=== PATIENT | female | born 1940 | race Caucasian/White ===

== ENCOUNTER → 2016-07-21 08:31 | Outpatient (CLI) | payer MEDICARE, OTHER ==
[~2016-07-21 08:31] MED LIST: AMOXICILLIN875 MG PO; ANTIVERT12.5 MG PO; ASPIRIN81 MG PO; ATIVAN0.5 MG PT; ATIVAN2 MG/ML IV; AUGMENTIN 875-11 TAB PO; BETAPACE 80 MG80 MG PO; BOUDREAUXS113 GM TP; CELEXA40 MG PO; COMBIGAN OPHT DR5 ML EACH EYE; COMBIGAN OPHT DR5 ML OP; COUMADIN2.5 MG PO; COUMADIN3 MG PO; COUMADIN5 MG PO; DEXTROSE 50%/WA50 ML IV; DIABETA5 MG PO; DULCOLAX10 MG/SUPP RC; GLIPIZIDE10 MG PO; GLIPIZIDE10 MG PT; GLUCAGON1 MG/KIT IM; GLUCAGON1 MG/KIT SQ; GLUCOPHAGE500 MG PO; HUMALOG 30100 UNITS/ SC; HUMALOG100 U/M1 SQ; HYDROCHLOROTHIA25 MG PO; IMODIUM A-D2 MG PO; INSTA-GLUCOSE31 GM PO; JANUVIA100 MG PO; KLOR-CON M2020 MEQ PO; LANOXIN125 MCG PO; LANOXIN250 MCG; LANOXIN250 MCG PO; LANTUS SOL100 UNIT/1 SC; LANTUS SOL100 UNIT/1 SQ; LASIX40 MG PO; LOPRESSOR25 MG PO; LOPRESSOR50 MG PO; LOTREL 5/10 MG1 CAP PO; LOTRISONE CREAM45 GM TP; MACRODANTIN100 MG PO; MICRO-K10 MEQ PO; MIRALAX17 GM PO; PLAVIX75 MG PO; POTASSIUM20 MEQ/15 PO; PROTONIX I40 MG/VIAL IV; SALINE FLUSH10 ML IV; SALINE NASAL SP45 ML NS; SENOKOT-S TABLE1 TAB PO; VITAMIN D31000 UNIT PO; XARELTO10 MG PO; XOPENEX 1.1.25 MG/3 UPD; [UNRECOGNIZED DRUG - OTHER]
== END | disposition home or self-care (01) ==
LOC: D.CT 08:31
DX: I73.9 Peripheral vascular disease, unspecified (principal)

== ENCOUNTER 2016-07-29 12:46 | Inpatient (IN) | payer MEDICARE, OTHER ==
[~2016-07-29] VITALS: Ht 160 cm; Wt 70.0 kg
[2016-07-29] VITALS (12 sets, daily range): BP systolic 120–168; BP diastolic 51–75; Ht 160 cm; Wt 70.0 kg
--- NOTE | ~2016-07-29 | HEMODYNAMI ---
PATIENT:CATHY MAR MEDICAL RECORD: [id number] : 42 LOCATION:[facility] D.CV ADMISSION DATE: 07/29/16 Generatedon:08/01/201610:50 Patient name: CATHY MAR Patient #: [id number] SSN: : 1940 Date of study: 08/01/2016 Page: Of Hemodynamic Procedure Report Patient Data Patient Demographics Procedure consent was obtained First Name: CATHY Gender: Female Last Name: ISABELA : 1940 Patient #: [id number] Age: 75 year(s) Race: Unknown Additional ID: [id number] Contact details [address]: [address] [place] [address] State: [place] City: [place] Zip code: [address] Admission Admission Data Admission Date: 07/29/2016 Admission Time: 12:46 Room #: [facility]07 Procedure Procedure Types Cath Procedure Peripheral Cath Diagnostic Procedure Miscellaneous Procedure Description Procedure Date Procedure Date: 08/01/2016 Procedure Start Time: 9:01 Procedure Staff Name Function Rosendo Brower MD Performing Physician Eloise Lopez RN Nurse Chery Anguiano RT Scrub Thompson Joyner RT Monitor Procedure Data Cath Procedure Fluoroscopy Diagnostic fluoroscopy Total fluoroscopy Time: time: 22.1 min 22.1 min Diagnostic fluoroscopy Total fluoroscopy dose: 205 dose: 205 mGy mGy Entry Location Entry Primary Successful Side Size Upsize 1 Upsize Entry Closure Raygoza ccessful Closure Location (Fr) (Fr) 2 (Fr) Remarks Device Remarks Femoral Right 5 Fr artery Femoral Right 5 Fr 6 Fr Mynx artery Mid-Length Automatic Grinder Operator 6Fr/7Fr Diagnostic catheters Device Type Used For End Catheter Placement Diagnostic 5Fr IMT Catheter Procedure Medications Medication Administration Route Dosage Oxygen NC 3 l/min Lidocaine 1% added to field 20 Heparin Flush Bag added to field 3 bags (1000units/500ml NS) Versed I.V. 1 mg Fentanyl I.V. 50 mcg Versed I.V. 0.5 mg Fentanyl I.V. 25 mcg Heparin Bolus I.V. 4000 units Nitroglycerin IC/IA I.A. 300 mcg Versed I.V. 0.5 mg Fentanyl I.V. 25 mcg Nitroglycerin IC/IA I.A. 200 mcg Versed I.V. 0.5 mg Fentanyl I.V. 25 mcg Heparin Bolus I.V. 2000 units Versed I.V. 0.5 mg Fentanyl I.V. 25 mcg Hemodynamics Rest Heart Rate: 70 (bpm) Snapshots Pre Cath Intra NCS Post Cath Vital Signs Time Heart Resp SPO2 NIBP (mmHg) Rhythm Pain Sedation Rate (ipm) (%) Status Level (bpm) 8:40:23 69 18 97 174/80(122) Paced 0 (11) 10(A) , No pain 8:44:52 63 9 95 172/86(148) Paced 0 (11) 10(A) , No pain 8:49:16 69 17 98 172/81(134) Paced 0 (11) 10(A) , No pain 8:53:40 72 13 96 164/85(157) Paced 0 (11) 10(A) , No pain 8:58:04 69 14 98 143/70(111) Paced 0 (11) 10(A) , No pain 9:02:24 69 13 96 138/62(111) Paced 0 (11) 10(A) , No pain 9:06:44 69 17 96 135/63(101) Paced 0 (11) 9(A) , No pain 9:11:05 69 11 95 140/66(107) Paced 0 (11) 9(A) , No pain 9:15:23 69 17 95 126/59(99) Paced 0 (11) 9(A) , No pain 9:19:39 69 15 96 144/67(102) Paced 0 (11) 9(A) , No pain 9:23:59 69 15 96 145/65(108) Paced 0 (11) 9(A) , No pain 9:28:21 69 14 96 151/74(123) Paced 0 (11) 9(A) , No pain 9:32:45 69 14 97 158/73(121) Paced 0 (11) 9(A) , No pain 9:37:01 69 14 96 139/64(109) Paced 0 (11) 9(A) , No pain 9:41:19 69 14 94 128/56(93) Paced 0 (11) 9(A) , No pain 9:45:38 69 14 94 126/60(102) Paced 0 (11) 9(A) , No pain 9:49:56 69 16 94 126/61(99) Paced 0 (11) 9(A) , No pain 9:54:16 69 15 94 127/59(96) Paced 0 (11) 9(A) , No pain 9:58:34 69 15 94 116/53(82) Paced 0 (11) 9(A) , No pain 10:02:44 69 14 93 104/64(99) Paced 0 (11) 9(A) , No pain 10:07:43 69 14 94 129/62(103) Paced 0 (11) 9(A) , No pain 10:11:57 69 12 94 122/60(93) Paced 0 (11) 9(A) , No pain 10:16:13 69 13 95 120/58(88) Paced 0 (11) 9(A) , No pain 10:21:20 69 10 95 149/70(118) Paced 0 (11) 9(A) , No pain 10:25:36 69 13 94 135/66(109) Paced 0 (11) 9(A) , No pain 10:29:58 69 14 94 120/59(96) Paced 0 (11) 9(A) , No pain 10:34:10 69 12 96 132/72(102) Paced 0 (11) 9(A) , No pain 10:38:28 69 12 95 132/67(112) Paced 0 (11) 9(A) , No pain 10:42:46 69 10 96 127/65(103) Paced 0 (11) 9(A) , No pain 10:46:56 69 17 97 146/86(122) Paced 0 (11) 9(A) , No pain Medications Time Medication Route Dose Verified Delivered Reason Notes Effectiveness by by 8:39:06 Oxygen NC 3 Eloise Eloise Per protocol l/min King HODA Lopez RN 8:39:19 Lidocaine 1% added 20ml Eloise Eloise for local to vial King HODA Lopez RN anesthetic field 8:39:38 Heparin Flush added 3 bags Eloise Eloise used for Bag to King HODA Lopez RN procedure (1000units/500ml field NS) 8:54:42 Versed I.V. 1 mg Eloise Eloise for sedation King HODA Lopez RN 8:54:49 Fentanyl I.V. 50 mcg Eloise Eloise for sedation King HODA Lopez RN 9:06:26 Versed I.V. 0.5 mg Eloise Eloise for sedation King HODA Lopez RN 9:06:33 Fentanyl I.V. 25 mcg Eloise Eloise for sedation King HODA Lopez RN 9:11:52 Heparin Bolus I.V. 4000 Rosendo Eloise for units Inocente Lopez RN anticoagulation 9:31:13 Nitroglycerin I.A. 300mcg Eloise Rosendo for IC/IA King HODA Brower vasodilation 9:36:22 Versed I.V. 0.5 mg Eloise Rosendo for sedation King HODA Brower MD 9:36:27 Fentanyl I.V. 25 mcg Eloise Rosendo for sedation King HODA Brower MD 9:53:42 Nitroglycerin I.A. 200mcg Eloise Rosendo for IC/IA King HODA Brower vasodilation 9:55:43 Versed I.V. 0.5 mg Eloise Rosendo for sedation King HODA Brower MD 9:55:49 Fentanyl I.V. 25 mcg Eloise Rosendo for sedation King HODA Brower MD 9:57:24 Heparin Bolus I.V. 2000 Eloise Rosendo for units King HODA Brower anticoagulation 10:20:02 Versed I.V. 0.5 mg Eloise Rosendo for sedation King HODA Brower MD 10:20:07 Fentanyl I.V. 25 mcg Eloise Rosendo for sedation King HODA Brower MD Procedure Log Time Note 8:29:58 Thompson Joyner RT (R) (CV) sent for patient. Start room use. 8:30:09 Time tracking: Regular hours 8:30:15 Plan of Care:Hemodynamics will remain stable., Cardiac rhythm will remain stable., Comfort level will be maintained., Respiratory function will remain adequate., Patient/ family verbilizes understanding of procedure., Procedure tolerated without complication., Recovers from procedure without complications.. 8:30:20 Patient received from CVICU to IR Alert and oriented. Tansferred to table in Supine position. 8:30:22 Correct patient and procedure confirmed by team. 8:30:23 Correct patient and procedure confirmed by team. 8:30:27 Signed procedure consent form obtained from patient. 8:30:28 ECG and BP/O2 sat monitors applied to patient. 8:30:29 Full Disclosure recording started 8:30:29 - 8:30:33 H&P Date Dictated: 08/01/2016 Within 30 days and on chart.. 8:30:34 Pre-procedure instructions explained to patient. 8:30:34 Pre-op teaching completed and patient verbalized understanding. 8:30:36 Family unavailable. 8:30:38 Patient NPO since Midnight. 8:30:44 Is the patient allergic to Iodine/contrast media? No. 8:30:45 Is patient on blood thinner?Yes 8:30:48 ACC The patient was administered the following blood thiners within the last 24 hours: ACCHeparin 8:30:50 Patient diabetic? Yes. 8:30:52 If diabetic: On Metformin? Yes 8:30:57 If on Metformin: Last Dose? 07/29/2016 8:30:59 ----Pre-sedation anethsthesia assessment.---- 8:31:02 Previous problem with sedation/anesthesia? No ? 8:31:02 Snore? Yes 8:31:04 Sleep apnea? No 8:31:05 Deviated septum? No 8:31:06 Opens mouth fully? Yes 8:31:07 Sticks out tongue? Yes 8:31:09 Airway obstruction? No ? 8:31:11 Dentures? No ? 8:31:14 Use device set IR Diagnostic 8:31:16 Sterile Angiographic Pack opened to sterile field. 8:31:17 Bag Decanter opened to sterile field. 8:37:53 Vital chart was started 8:37:54 Baseline sample Acquired. 8:37:58 Rhythm: sinus rhythm 8:38:08 Pre procedure: left dorsailis pedis pulse Doppler 8:38:12 Pre procedure: right dorsailis pedis pulse 0-Absent 8:38:15 Pre procedure: right posterior tibial pulse 0-Absent 8:38:19 Pre procedure: left posterior tibial pulse Doppler 8:38:25 Patient pain scale 0/10 no pain. 8:38:27 Alarms reviewed by R. N. 8:38:27 Sharps counted by scrub and verified by R.N. 8:38:32 Bilateral groins area was prepped with chlora-prep and draped in steril e fashion 8:39:06 Oxygen 3 l/min NC was administered by Eloise Lopez RN; Per protocol; 8:39:19 Lidocaine 1% 20ml vial added to field was administered by Eloise Lopez RN; for local anesthetic; 8:39:38 Heparin Flush Bag (1000units/500ml NS) 3 bags added to field was administered by Eloise Lopez RN; used for procedure; 8:47:52 IV patent on arrival in left forearm with 0.9% NaCl at [facility]. 8:53:18 Physician arrived 8:53:19 --------ALL STOP TIME OUT------ 8:53:20 Final Timeout: patient, procedure, and site verified with staff and physician. All members of the team are in agreement. 8:53:22 Bilateral groins site verified by team. 8:53:26 Physical assessment completed. ASA score P 3 - A patient with severe systemic disease as per Rosendo Brower MD. 8:53:30 Sedation plan: IV Moderate Sedation Versed, Fentanyl 8:54:42 Versed 1 mg I.V. was administered by Eloise Lopez RN; for sedation; 8:54:49 Fentanyl 50 mcg I.V. was administered by Eloise Lopez RN; for sedation; 9:01:10 Procedure started. 9:01:22 Local anesthetic to left femerol artery with Lidocaine 1% by Rosendo Brower MD.INITIAL ACCESS ONLY 9:01:36 A 5 Fr sheath was inserted into the Right Femoral artery 9:01:54 A 5 Fr sheath was inserted into the Right Femoral artery 9:02:11 Damien NICHOLSON 145cm guide wire opened to sterile field. 9:02:12 St Ben 5FR Sheath opened to sterile field. 9:02:12 Micropuncture VSI 4FR kit opened to sterile field. 9:02:13 Damien RHODES 260 guide wire opened to sterile field. 9:02:21 A Diagnostic 5Fr IMT Catheter was advanced over the wire and used for . 9:06:26 Versed 0.5 mg I.V. was administered by Eloise Lopez RN; for sedation; 9:06:33 Fentanyl 25 mcg I.V. was administered by Eloise Lopez RN; for sedation; 9:09:43 Cook [facility] 260 .035 glide wire opened to sterile field. 9:10:15 Terumo 6Fr Roxana Destination Sheath opened to sterile field. 9:10:31 Sheath upsized to a 6 Fr Mid-Length. 9:11:52 Heparin Bolus 4000 units I.V. was administered by Eloise Lopez RN; for anticoagulation; 9:14:23 CXI SUPPORT .035 135 CM STR catheter opened to sterile field. 9:22:40 [place] Sci Choice PT Extra Support J 300cm .014 gu opened to sterile field. 9:23:01 Turbohawk 1 Large Atherectomy catheter opened to sterile field. 9:24:38 Terumo ANGLE 260cm glide wire opened to sterile field. 9:24:39 BasixTOUCH Inflation Syringe opened to sterile field. 9:31:13 Nitroglycerin IC/IA 300mcg I.A. was administered by Rosendo Brower MD; for vasodilation; 9:36:22 Versed 0.5 mg I.V. was administered by Rosendo Brower MD; for sedation; 9:36:27 Fentanyl 25 mcg I.V. was administered by Rosendo Brower MD; for sedation; 9:53:42 Nitroglycerin IC/IA 200mcg I.A. was administered by Rosendo Brower MD; for vasodilation; 9:55:43 Versed 0.5 mg I.V. was administered by Rosendo Brower MD; for sedation; 9:55:49 Fentanyl 25 mcg I.V. was administered by Rosendo Brower MD; for sedation; 9:57:24 Heparin Bolus 2000 units I.V. was administered by Rosendo Brower MD; fo r anticoagulation; 10:10:37 Inflation number: 1 A IN.PACT Admiral 5 x 150 balloon was prepped and advanced across the Distal Superficial Femoral, Right, then inflated to 0 ZELDA for 0:00 (min:sec). 10:15:11 Inflation number: 1 A IN.PACT Admiral 6 x 150 balloon was prepped and advanced across the Mid Superficial Femoral, Right, then inflated to 0 ZELDA for 0:00 (min:sec). 10:20:02 Versed 0.5 mg I.V. was administered by Rosendo Brower MD; for sedation; 10:20:07 Fentanyl 25 mcg I.V. was administered by Rosendo Brower MD; for sedation; 10:24:04 Inflation number: 1 A IN.PACT Admiral 6 x 150 balloon was prepped and advanced across the Proximal Superficial Femoral, Right, then inflated to 0 ZELDA for 0:00 (min:sec). 10:25:29 St Ben 6Fr sheath opened to sterile field. 10:37:47 Sheath removed intact; hemostasis achieved with Mynx Automatic Grinder Operator 6Fr/7Fr to th e Right Femoral artery. 10:39:33 MYNX ROOM SERVICE SUPERVISOR 6FR/7FR opened to sterile field. 10:39:35 Procedure ended.(Physican Out) 10:40:42 Fluoroscopy time 22.10 minutes. 10:40:56 Fluoroscopy dose: 205 mGy 10:40:56 Flurop Dose total: 205 10:41:06 Contrast amount:Isovue 300 0.01ml. 10:41:08 Sharps counted by scrub and verified by R.N. 10:41:11 Insertion/operative site no bleeding no hematoma. 10:41:14 Post-op/insertion site Left Femoral artery dressed using a 4 x 4 and Tegaderm. 10:41:19 Post left femerol artery:stable 10:41:20 Post Procedure Pulses reassessed and unchanged 10:47:09 Post-procedure physical assessment completed. ASA score P 3 - A patient with severe systemic disease as per Rosendo Brower MD. 10:47:14 Post procedure rhythm: unchanged. 10:47:15 Post procedure instruction explained to patient.Patient verbalizes understanding. 10:47:23 Post procedure: right dorsailis pedis pulse Doppler. 10:47:25 Post procedure: left dorsailis pedis pulse Doppler. 10:47:29 Post procedure: right posterior tibial pulse Doppler. 10:47:33 Post procedure: left posterior tibial pulse 0-Absent. 10:49:32 Procedure and supply charges have been captured, reviewed, submitted an d are correct. 10:49:35 Report given to CVICU. 10:49:38 Patient transfered to CVICU with Bed. 10:50:20 Vital chart was stopped Intervention Summary Intervention Notes Time ActionType Lesion and Equipment Action# Pressure Duration Attributes Used 10:10:37 Inflate Distal IN.PACT 1 0 00:00 balloon Superficial Admiral 5 Femoral, x 150 Right balloon 10:15:11 Inflate Mid IN.PACT 1 0 00:00 balloon Superficial Admiral 6 Femoral, x 150 Right balloon 10:24:04 Inflate Proximal IN.PACT 1 0 00:00 balloon Superficial Admiral 6 Femoral, x 150 Right balloon Device Usage Item Name Manufacture Quantity Catalog Number [facility] nimal Lot# / Charge Number Stock Stock Serial# Code Sterile Cardinal 1 [id number] 5 Angiographic Health Pack Bag Decanter Microtek 1 [id number] [id number] 5 [employer] [facility] 1 [id number] 506971 846597 [id number] guide wire [address] Ben 5FR St Ben 1 [id number] 652667 368329 5 [id number] Sheath Micropuncture VSI VASCULAR 1 [id number] 281464 654883 5 VSI 4FR kit SOLUTIONS [facility] 1 [id number] 884198 657567 5 [id number] 260 guide wire Diagnostic [place] 1 [id number] 307972 878010 41788 5 [id number] 5Fr IMT Scientific Catheter [facility] 1 [id number] 478524 839453 5 [id number] ROADRUNNER 260 .035 glide wire Terumo 6Fr Terumo 1 RSR01 345187 92399 061101 5 Roxana Destination Sheath CXI SUPPORT [facility] 1 [id number] 326244 212692 5 .035 135 CM STR catheter [place] Sci [place] 1 [id number] 643830 [id number] 659872 5 Choice PT Scientific Extra Support J 300cm .014 gu Turbohawk 1 Ev3 1 H1-M [id number] 836369 070260 5 Large Atherectomy catheter Terumo ANGLE Terumo 1 [id number] 283590 802989 062261 5 260cm glide wire BasixTOUCH Merit 1 DO7870 226528 788712 933186 5 Inflation Medical Syringe IN.PACT Medtronic 1 [id number] 723624 2039495 172190 5 [id number] Admiral 5 x 150 balloon IN.PACT Medtronic 2 [id number] 178066 4351583 279958 5 [id number] Admiral 6 x [id number] [address] Ben [address] St Ben 1 [id number] 373797 025739 5 [id number] sheath MYNX ROOM SERVICE SUPERVISOR Access 1 [id number] [id number] 5 [id number] 6FR/7FR Closure Signature Audit [place] Stage Time Signature Unsigned Intra-Procedure 08/01/2016 Thompson 10:50:17 AM Ar RT (R) (CV) Signatures Monitor : Thompson Signature : Ar RT Date : Time : [address] [place] [address]
[~2016-07-29 12:46] MED LIST changes: -AMOXICILLIN875 MG PO; -AUGMENTIN 875-11 TAB PO
--- NOTE | 2016-07-29 13:45 | NUR ---
SPOKE WITH AMINA AUTO SERVICE REPRESENTATIVE ACCESS NURSE. NOTIFIED OF CONSULT FOR MIDLINE ACCESS.
[2016-07-29] MEDS ORDERED: AMOXICILLIN875 MG PO (13:52)
[2016-07-29 13:54] LABS: HEMATOCRIT 42.7 % (36.0-48.0); HEMOGLOBIN 13.4 g/dL (12-16); MCH 29.7 pg (26.0-34.0); MCHC 31.4 g/dL (31.0-37.0); MCV 94.7 fL (80.0-100.0); MEAN PLATELET VOLUME 11.1 fL (7.4-10.4); RBC 4.51 10x6/uL (4.00-5.40); RDW 14.1 % (11.5-14.5)
--- NOTE | 2016-07-29 14:24 | NUR ---
1320 PATIENT ARRIVED VIA WHEELCHAIR VIA DIRECT ADMIT FROM DR. SHAIKH'S OFFICE. ORDERS ENTERED WRITTEN. VITALS ALL WNL. ADMISSION ASSESSMENT DOCUMENTED PER FLOWSHEET. OPEN WOUND TO BOTTOM OF R GREAT TOE. PULSES PALP TO LEFT FOOT, PULSES DOPPLERED TO R FOOT. CONSULT PLACED FOR IR, HODA ROGER FROM IR ON FLOOR. HODA HUYNH FOR MIDLINE ACCESS CONSULTED. HODA NUNEZ WITH WOUND CARE CONSULTED. 1345 PATIENT OFF FLOOR TO XRAY FOR PA & LATERAL VIA WHEELCHAIR. 1400 BACK TO BED, SHALA WITH RESP AT SIDE FOR ABG.
[2016-07-29 14:25] LABS: APTT 26.1 SECONDS (22.8-39.4); INR 1.05 (0.85-1.17); PROTIME 13.6 SECONDS (11.6-15.0)
[2016-07-29 14:30] LABS: ALBUMIN 3.5 g/dL (3.4-5.0); ANION GAP 14.1 mmol/L (8-16); BILIRUBIN - TOTAL 0.6 mg/dL (0.2-1.3); CALCIUM 9.7 mg/dL (8.5-10.1); CARBON DIOXIDE 29.5 mmol/L (21.0-32.0); CREATININE - SERUM 1.3 mg/dL (0.6-1.3); POTASSIUM - SERUM 4.6 mmol/L (3.5-5.1); PROTEIN - SERUM 7.2 g/dL (6.4-8.2)
--- NOTE | 2016-07-29 15:09 | NUR ---
AMINA BYRD RN AT BEDSIDE FOR MIDLINE PLACEMENT. HODA HANKSCIVIL CELEBRANT AT BEDSIDE FOR CONSULT.
--- NOTE | 2016-07-29 15:46 | NUR ---
WOUND CARE CONSULT: NOTED 2 OPEN WOUNDS ON RIGHT GREAT TOE (PLANTAR ASPECT). BOTH WOUNDS ARE DRY WITH PEELING EDGES. THE TOE IS COOL TO THE TOUCH. NO DRAINAGE IS NOTED, NO ODOR, EDEMA OR REDNESS. TOE BLANCHES, BUT SLOWLY. RECOMMEND APPLYING HYDROGEL TO BOTH WOUNDS DAILY. WOUND CARE WILL CONTINUE MONITORING.
--- NOTE | 2016-07-29 16:14 | NUR ---
1545 LEFT UPPER ARM PICC LINE PLACED. OK TO USE PER AMINA BYRD RN. WOUND CARE NURSE AT BEDSIDE TO DRESS R GREAT TOE. 1350 HEPARIN GTT AND NS STARTED PER ORDER FROM DR. SHAIKH. 1600 ALL PO MEDS GIVEN ORDERED.
--- NOTE | 2016-07-29 16:45 | NUR ---
SITTING UP IN BED EATING DINNER, ARRIVED WITH LIVING WILL. MYSELF AND DURGA GLEZ BOTH WITNESSED PATIENT LIVING WILL. COPY PLACED IN CHART AND FILED DOWNSTAIRS.
--- NOTE | 2016-07-29 18:35 | NUR ---
AMBULATED TO BATHROOM TO VOID. SITTING IN BEDSIDE CHAIR.
--- NOTE | 2016-07-29 19:30 | NUR ---
Assessment complete. See flowsheet. Pt awake and sitting in bedside chair with VSS. Pt alert, oriented x4 and following all commands and conversation with no neuro deficits noted. Pupils size 3 bilaterally ERRLA. Pt moving all extremities with 5/5 strength and no edema noted. Right great toe dressing noted and secure with distal half of right foot red and blanching. Pt denies pain to site. Lung sounds CTA. HR paced 70BPM with S1S2 auscultated. Left upper chest pacemaker noted. Radial pulses +2 bilaterally. Bilateral dorsalis pedis pulses doppler located to confirm weak palpation of pulses. Left upper arm PICC line site CDI with heparin gtt infusing @ 500un/hr (5cc/hr) with NS @ 10cc/hr KVO rate. BS present to all quadrants. Abdomen soft and flat, nontender to palpation. Pt calm and cooperative with no complaints at this time. Rapport established. Temp 98.2F orally. Pt provided with ice water per request. Call light, telephone and bedside table placed within pt reach per request. CPOC.
--- NOTE | 2016-07-29 20:33 | NUR ---
HEPARIN 3000un IV bolus administered. Heparin gtt rate increased by 200un/hr per protocol to 700un/hr from PTT 32.7
--- NOTE | 2016-07-29 21:30 | NUR ---
PM meds administered. See MAR> FSBS 205mg/dL and covered per s/s. See MAR. Snack provided per pt request. CPOC.
--- NOTE | 2016-07-29 22:54 | NUR ---
Pt helped back to bed from chair to position for comfort. Pt tolerated well. VSS. Call light and bedside table placed within pt reach. CPOC.
--- NOTE | 2016-07-29 23:30 | NUR ---
Reassessment complete. See flowsheet. Pt watching television in bed with VSS and no neuro changes to note. O2 RA. Respirations even and unlabored. HR remains paced with S1S2 auscultated. No peripheral pulse changes to note. PICC line site CDI with no IVF changes to note. BS +. Pt continues to self-position for comfort. NO further request at this time. No other changes to note. Call light and bedside table remain within reach. CPOC.
[2016-07-30] VITALS (22 sets, daily range): BP systolic 116–165; BP diastolic 47–69
--- NOTE | 2016-07-30 01:30 | NUR ---
Pt resting quietly with VSS. NO s/s pain or distress and allowed to continue resting undisturbed. Call light and bedside table remain within pt reach. CPOC.
--- NOTE | 2016-07-30 02:00 | NUR ---
Timed PTT drawn
--- NOTE | 2016-07-30 03:30 | NUR ---
Reassessment complete. See flowsheet. Pt confused upon awakening to time but reorients easily. Pt remains calm. Respirations even and unlabored. HR remains paced with S1S2 auscultated. No peripheral pulse changes to note. PICC line site CDI with no IVF changes to note. BS +. Pt continues to self-position for comfort and up to bedside toilet with steady gait. Back to bed and positioning for comfort. Call light and bedside table remain within pt reach. CPOC.
--- NOTE | 2016-07-30 05:15 | NUR ---
Pt confused to time and situation and reoriented. Lights turned on per pt request. Pt reminded of breakfast serving time per request. Pt reorients well and remains calm and cooperative. Call light and bedside table remain within pt reach. CPOC.
--- NOTE | 2016-07-30 06:00 | NUR ---
Pt resting with VSS. Call light and bedside table remain within pt reach. CPOC.
--- NOTE | 2016-07-30 14:10 | HP ---
PATIENT: CATHY MAR MEDICAL RECORD: [id number] ACCOUNT: [id number] LOCATION:[facility].CV07 : 41 ADMISSION DATE: 07/29/16 HISTORY AND PHYSICAL EXAMINATION CATHY Jaimes (75yo, F) ID# [id number]. Date/Time07/29/2016 10:71EGQWA01/29/1941Service Dept.NP_[facility] ClinicProviderEDMORENITA SHAIKH MDInsuranceMed Primary: [place] ([place]) Insurance # : [id number] Referring Provider Name : GIOVANNA KRUEGER Employer Name : RETIRED Med Secondary: [employer] (MEDICARE SUPPLEMENT) Insurance # : [id number] Referring Provider Name : GIOVANNA KRUEGER Employer Name : RETIRED Prescription: ARGSDIR - Member is eligible. Chief Complaint PVD - peripheral vascular disease Followup: Carotid artery stenosis s/p RCEA 11/03/15 s/p PPM placement 10/24/12 need LCEA new referral for PVD Patient's Care Team Referring Provider (): GIOVANNA KRUEGER: [address] [place] [address], , Patient's Pharmacies [facility] (ERX): [address] [facility] [id number], , Vitals BP:150/90 sitting R arm 07/29/2016 11:06 amHR:66irreg 07/29/2016 11:06 amHt:5 ft 4 in 07/29/2016 11:03 amWt:151 lbs 07/29/2016 11:04 amBMI:25.9 07/29/2016 11:04 amAllergies Reviewed Allergies AVANDAMET: Myalgias (muscle pain)AVANDIA: Other - intolerant toMETFORMIN: Myalgias (muscle pain)[id number] REDUCTASE INHIBITORS: Myalgias (muscle pain)Medications Reviewed Medications Accu-Chek Compact Plus Test Strips TEST BID06/08/16 filledsurescriptsamoxicillin 875 mg-potassium clavulanate 125 mg ojukhz32/08/17 filledLivekickcitalopram 40 mg anzzpm92/07/17 filledLivekickCombigan 0.2 %-0.5 % eye drops03/06/15 filledCaremarkdigoxin 125 mcg /28/17 filledLivekickfurosemide 40 mg pyfcju14/27/17 filledLivekickKlor-Con M20 mEq tablet,extended hztzemg00/14/17 filledLivekickLantus Solostar 100 unit/mL (3 mL) subcutaneous insulin pen07/03/16 filledLivekickmetFORMIN 500 mg hlhdui81/23/17 filledLivekickmetoprolol tartrate 25 mg /10/17 filledLivekickPen Needle 31 gauge x 09/27"03/16/13 filledCaremarksotalol 120 mg tablet TK ONE T PO BID.06/08/16 filledLivekickProblems Reviewed Problems 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 - Onset: 07/29/2016 Atrial fibrillation Atherosclerosis of arteries of the extremities - Onset: 07/28/2016 Coronary arteriosclerosis HISTORY AND PHYSICAL [id number] CATHY MAR Carotid artery stenosis, Bilateral Diabetes mellitus Family History Discussed Family History Father- Myocardial infarction ( age: 56)Mother- Alzheimer's disease ( age: 84)Brother- Myocardial infarction (onset age: 60)Sister- Alzheimer's diseaseBrother- Hypertensive disorderSocial History Discussed Social History Cardiology Family history of heart disease?: Y Smoking Status: Former smoker High Cholesterol: Y High blood pressure: Y Overweight: Y Diabetes: Y Alcohol intake: None Marital status: Surgical History Reviewed Surgical History Other - cholecystectomy Other - 2012 - PPM CABG - 10/1992 - 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 HPI Cerebral Vascular Disease Reported by patient. Quality: weakness; numbess Peripheral Vascular Disease Reported by patient. Location: foot ("right big toe ulcer") Severity: moderate severe bilateral atherosclerosis with gangrene right foot ROS Patient reports exercise intolerance but reports no fever, no night sweats, no significant weight gain, and no significant weight loss. She reports muscle aches, muscle weakness, and arthralgias/joint pain but reports no back pain and no swelling in the extremities; severe painful right lower extremity. She reports dizziness but HISTORY AND PHYSICAL [id number] CATHY MAR reports no loss of consciousness, no weakness, no numbness, no seizures, and no headaches. She reports no dry eyes, no irritation, and no vision change. She reports no difficulty hearing and no ear pain. She reports no frequent nosebleeds and no nose/sinus problems. She reports no sore throat, no bleeding gums, no snoring, no dry mouth, no mouth ulcers, no oral abnormalities, and no teeth problems. She reports no jugular vein distension and no swollen glands. She reports no chest pain, no arm pain on exertion, no pema r tness of breath when walking, no shortness of breath when lying down, no palpitations, and no known heart murmur. She reports no cough, no wheezing, no shortness of breath, and no coughing up blood. She reports no abdominal pain, no vomiting, normal appet i te, no diarrhea, not vomiting blood, no nausea, and no constipation. She reports no incontinence, no difficulty urinating, no hematuria, and no increased frequency. She reports no abnormal mole, no jaundice, and no rashes. She reports no depression, no sl eep disturbances, feeling safe in relationship, and no alcohol abuse. She reports no fatigue. She reports no swollen glands and no bruising. She reports no runny nose, no sinus pressure, no itching, no hives, and no frequent sneezing. ROS as noted in the HPI Physical Exam Patient is a 75-year-old female. Constitutional: General Appearance healthy-appearing, well developed, and overweight. Level of Distress chronically ill. Ambulation limited ambulation. Ears, Nose, Throat: Ears grossly normal hearing. Nose no external nose lesion. Lips, Teeth, and Gums no mouth or lip ulcers. Cardiovascular: Apical Impulse not displaced or no thrill. Heart Auscultation normal s1 and s2; no murmurs, rubs, or gallops; and RRR. Arterial Pulses no abdominal aorta bruits, femoral bruits, or popliteal bruits; femoral diminished (bilaterally), popliteal not palpable (bilaterally), and dorsalis pedis not palpable (bilateral); and 2+ bilateral, carotid 2+ bilateral, and femoral 2+ bilateral. Edema no edema or varicosities. Lungs: Repiratory Effort no dyspnea. Percussion no hyperresonance or dullness or flatness. Auscultation no wheezing, rhonchi, or rales / crackles and breathing sounds normal, good air movement, and CTA except as noted. Abdomen: Aydin wl Sounds normal. Inspection and Palpation no tenderness, guarding, masses, or rebound tenderness and soft and non-distended. Liver non-tender and no hepatomegaly. Spleen non-tender and no splenomegaly. Hernia none palpable. Musculoskeletal System: Gait And Stance irregular gait and stance. Digits and Nails normal nails, no cyanosis, and abnormal nails; erythema. Joints, Bones, and Muscles ulceration medial aspect right great toe Gangrenous ulcer. Neurologic: Cranial Nerves grossly intact. Reflexes DTRs 2+ bilaterally throughout. Sensation grossly intact. Lymph Nodes: Lymph Nodes no cervical LAD, supraclavicular LAD, axillary LAD, or inguinal LAD. Eyes: Lids and Conjunctivae no discharge or pallor and non-injected. Pupils PERRLA. Cornea grossly intact. EOM EOMI. Lens clear. Sclera non-icteric. HISTORY AND PHYSICAL [id number] CATHY MAR Neck: Neck no masses or enlarged lymph nodes and supple, trachea midline, and carotid bruits (the bilateral high pitched bruits). Thyroid non-tender, no enlargement, and palpable nodule (left lobe). Skin: Inspection and Palpation no rash, lesions, ulcers, jaundice, or abnormal nevi. 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 Carotid artery stenosis - Bilateral I65.29: Occlusion and stenosis of unspecified carotid artery CAROTID STENOSIS: CARE INSTRUCTIONS 3. Atherosclerosis of arteries of the extremities I70.209: Unspecified atherosclerosis of [place] arteries of extremities, unspecified extremity 4. Coronary arteriosclerosis I25.10: Atherosclerotic heart disease of [place] coronary artery without angina pectoris 5. Diabetes mellitus E11.621: Type 2 diabetes mellitus with foot ulcer Discussion Notes admission for heparin drip We will ask interventional radiology to evaluate She has severe left internal carotid artery stenosis and is not a candidate for anesthesia unless absolutely necessary. Return to Office None recorded. JOEL SHAIKH MD at 1410 CC: [id number] DICTATION DATE: 07/29/16 1030 FUGITIVE DETECTIVE: LAURA 07/29/16 1253 ADM IN [facility] [address] [place] [address]
--- NOTE | 2016-07-30 19:20 | NUR ---
Assessment complete. See flowsheet. Pt awake with at bedside. Pt awake, alert, oriented x4 and following all commands and conversation with no neuro deficits noted. Pt calm and cooperative. Pupils size 3 bilaterally ERRLA. Pt with 5/5 strength to all extremities. No edema noted. Pt receiving O2 via room air with respirations even and unlabored. Lung sounds CTA. HR paced with S1S2 auscultated. Radial pulses +2. Dorsalis pedis pulses doppler located bilaterally. Left upper arm PICC line site CDI no s/s infection with NS @ 10cc/hr KVO rate and Heparin gtt infusing @ 1100un/hr. BS +. Pt right great toe dressing CDI and secure. Pt temp 98.4F orally. Pt denies needs at this time. Call light and bedside table within reach. CPOC.
--- NOTE | 2016-07-30 21:20 | NUR ---
Pt on telephone with and doing well. VSS. NO changes to note. Pt denies needs at this time. Call light and bedside table remain within pt reach. CPOC.
--- NOTE | 2016-07-30 23:20 | NUR ---
Reassessment complete. See flowsheet. Pt resting with VSS and awakens to verbal stimulation with no neuro changes to note. O2 RA. Lung sounds CTA. HR paced with S1S2 auscultated. No peripheral pulse changes to note. PICC line site CDI with heparin gtt infusing @ 1200un/hr with NS @ 10cc/hr KVO rate. BS +. Right great toe unchanged. Pt self-positioning for comfort and denies needs at this time. Call light and bedside table remain within pt reach. CPOC.
[2016-07-31] VITALS (22 sets, daily range): BP systolic 117–154; BP diastolic 48–73
--- NOTE | 2016-07-31 01:20 | NUR ---
Pt resting quietly with VSS. No s/s pain or distress and allowed to continue resting undisturbed. Call light and bedside table remain within pt reach. CPOC.
--- NOTE | 2016-07-31 03:20 | NUR ---
Reassessment complete. See flowsheet. Pt resting with VSS and awakens to verbal stimulation. Pt disoriented to time and reorients easily. No other neuro deficits noted. O2 RA. Lung sounds CTA. HR paced with S1S2 auscultated. PICC line site CDI. Heparin gtt @ 1200un/hr with NS @ KVO. Dorsalis pedis pulses doppler located bilaterally. BS +. Pt self-positioning for comfort. Right great toe dressing remains CDI; secure. Pt denies pain or further needs at this time. Call light and bedside table remain within pt reach. CPOC.
--- NOTE | 2016-07-31 05:20 | NUR ---
Pt on phone with . VSS. Needs/pain denied at this time.
--- NOTE | 2016-07-31 19:30 | NUR ---
Assessment complete. See flowsheet. Pt resting and awakens easily to verbal stimulation with no neuro deficits noted. Pupils size 3 bilaterally ERRLA. Pt moving all extremities with 4/5 strength and no edema noted. O2 RA. Respirations even and unlabored. Lung sounds clear to auscultation. HR paced with S1S2 auscultated. Radial pulses +2 bilaterally with dorsalis pulses weak/palpable and doppler confirmed bilaterally. Left upper arm PICC line CDI no s/s infection with NS @ 10cc/hr KVO rate with Heparin gtt infusing @ 1200un/hr (12cc/hr). Abdomen soft, non-tender with BS present to all quadrants. Right great toe dressing secure with no drainage noted. Pt self-positioned for comfort and denies pain or needs at this time. Call light and bedside table within reach. CPOC.
--- NOTE | 2016-07-31 23:30 | NUR ---
Reassessment complete. See flowsheet. Pt resting with VSS and awakens to verbal stimulation with no neuro deficits. O2 RA. Lung sounds CTA. HR paced. S1S2 auscultated. No peripheral pulse changes to note. PICC line site remains CDI with NO IVF changes to note. BS +. Pt continues to self-position for comfort. Pain denied. Further needs denied. Call light and bedside table remain within pt reach. CPOC.
[2016-08-01] VITALS (25 sets, daily range): BP systolic 119–158; BP diastolic 48–72
--- NOTE | 2016-08-01 01:20 | NUR ---
Pt helped to bathroom for void and back to bed to reposition for comfort. VSS.
--- NOTE | 2016-08-01 05:20 | NUR ---
Pt resting quietly with VSS. NO s/s pain or distress and allowed to continue resting undisturbed. Call light and bedside table remain within pt reach. CPOC.
[2016-08-01 06:06] LABS: BASOPHILS 0.7 % (0.0-2.0); HEMATOCRIT 40.7 % (36.0-48.0); HEMOGLOBIN 12.7 g/dL (12-16); IMMATURE GRANULOCYTES 0.4 % (0-5); LYMPHOCYTES 19.7 % (15-50); MCH 29.3 pg (26.0-34.0); MCHC 31.2 g/dL (31.0-37.0); MEAN PLATELET VOLUME 10.8 fL (7.4-10.4); MONOCYTES 9.9 % (2-11); NEUTROPHILS 66.3 % (40-80); PLATELET COUNT 174 10x3/uL (130-400); RBC 4.33 10x6/uL (4.00-5.40); RDW 14.3 % (11.5-14.5); WBC 8.3 10x3/uL (4.8-10.8)
[2016-08-01 06:17] LABS: ANION GAP 10.1 mmol/L (8-16); CARBON DIOXIDE 29.2 mmol/L (21.0-32.0); CREATININE - SERUM 1.2 mg/dL (0.6-1.3); POTASSIUM - SERUM 4.3 mmol/L (3.5-5.1)
[2016-08-01 06:19] LABS: INR 1.07 (0.85-1.17); PROTIME 13.8 SECONDS (11.6-15.0)
[2016-08-01 06:20] LABS: APTT 75.4 SECONDS (22.8-39.4)
--- NOTE | 2016-08-01 06:50 | NUR ---
Pt provided with chlorhexidine bath wipes and clean gown for preop bathing.
--- NOTE | 2016-08-01 07:15 | NUR ---
REPORT RECIEVED FROM GATE SUPERVISOR NURSE. PT IN BATHROOM GIVING HERSELF A CHLORHEXIDINE BATH. DENIES NEEDS AT THIS TIME. INSRUCTED TO USE BATHROOM CALL LIGHT IF SHE NEEDED ANYTHING. WILL CONTINUE TO ASSESS.
--- NOTE | 2016-08-01 08:15 | NUR ---
PT TAKEN FOR AFRO VIA BED. CONSENTS SIGNED AND IN THE CHART.
--- NOTE | 2016-08-01 10:27 | NUR ---
NUTRITION MONITORING & EVAL CHART REVIEWED. PT CURRENTLY NPO FOR PROCEDURE. WILL PROVIDE DIET WHEN RESUMED. MONITOR PO INTAKE. RD FOLLOWING
--- NOTE | 2016-08-01 11:15 | NUR ---
RETURNED FROM IR. VSS AT THIS TIME. LEFT GROIN SITE SOFT WITH NO BRUISING NOTED. PEDAL PULSES EASILY FOUND USING DOPPLER.
[2016-08-01 13:45] LABS: INR 1.11 (0.85-1.17); PROTIME 14.2 SECONDS (11.6-15.0)
[2016-08-01 13:56] LABS: APTT 141.3 SECONDS (22.8-39.4)
--- NOTE | 2016-08-01 14:00 | NUR ---
IR NURSE AT BEDSIDE. UPDATE PROVIDED.
--- NOTE | 2016-08-01 15:00 | NUR ---
AT BEDSIDE. UPDATE PROVIDED.
--- NOTE | 2016-08-01 17:00 | NUR ---
REPOSITIONED FOR COMOFORT. CALL LIGHT IN REACH. DENIES NEEDS AT THIS TIME. REFUSED DINNER TRAY. STATED SHE WASN'T HUNGRY.
--- NOTE | 2016-08-01 19:30 | NUR ---
INITIAL SHIFT ASSESSMENT COMPLETED.SEE FLOWSHEET PT AAOX4 DENIES PAIN AND NEEDS. INCONTINENT OF URINE. PERICARE DONE AND LINENS CHANGED. CALL LIGHT LEFT IN REACH. BED IN LOW POSITION. PT BEING MONITORED PER STANDARD PROTOCOL WITH ALL ALARMS SET AND VERIFIED.
--- NOTE | 2016-08-01 21:00 | NUR ---
NO VISITORS AT THIS TIME. PT TALKING ON THE PHONE TO FAMILY
--- NOTE | 2016-08-01 22:12 | NUR ---
PT AMBULATED TO BATHROOM GAIT SLOW AND STEADY. VOIDED FREELY. LEFT GROIN DRESSING REMAINS CDI AND GROIN SOFT
--- NOTE | 2016-08-01 23:00 | NUR ---
SHIFT REASSESSMENT COMPLETED. NO SIGNIFCANT CHANGES. IVF AND IV TUBING ARE ALL CURRENT AND PROPERLY LABELED.
[2016-08-02] VITALS (12 sets, daily range): BP systolic 119–153; BP diastolic 50–65
--- NOTE | 2016-08-02 01:00 | NUR ---
PT SLEEPING RESP REG AND NONLABORED
--- NOTE | 2016-08-02 03:00 | NUR ---
SHIFT REASSESSMENT COMPLETED. NOP SIGNIFICANT CHANGES
--- NOTE | 2016-08-02 03:45 | NUR ---
PTT DRAWN FROM PICC AFTER TURNING OFF HEPARIN FOR 10 MIN, FLUSHING WITH 10CC NS WASTING 10CC BLOOD AND THEN OBTAINING SPECIMEN IN ADHERANCE TO DR. SHAIKH'S DIRECTIONS FOR PTT DRAWS. SENT FOR ANALYSIS
--- NOTE | 2016-08-02 04:15 | NUR ---
PTT REVIEWED AND HEPARIN ADJUSTED. INCREASED BY 100U/HR. ORDERS TO RECHECK PTT IN [address]
--- NOTE | 2016-08-02 05:00 | NUR ---
VSS CONTINUES TO HAVE REG NONLABORED RESP
--- NOTE | 2016-08-02 07:00 | NUR ---
Received report and assumed care of patient. Pt is currently awake, alert and up in chair. Patient denies pain, denies needs. 100% paced on CM, rate in the 70s. BP stable. See shift assessment flowsheet for all findings.
--- NOTE | 2016-08-02 08:25 | NUR ---
through to see patient. Order to DC heparin gtt received. NC also D/c, Pt 98% on room air. Patient remains up in chair with breakfast tray.
--- NOTE | 2016-08-02 09:57 | NUR ---
Patient up to restroom, ambulated with stand by assistance.
--- NOTE | 2016-08-02 10:04 | NUR ---
Patient back to bed. Call light within reach.
--- NOTE | 2016-08-02 12:19 | NUR ---
in to see patient. Pt okay to go home. To call Irwin to check home antibiotic needed. To call Navjot to have him see her before she leaves.
--- NOTE | 2016-08-02 13:39 | NUR ---
Patient Name: CATHY MAR Admission Status: Elective Accout number: [id number] Admission Date: 07-29-2016 : 1940 Admission Diagnosis:ATHSCL [place] ARTERIES OF EXTREMITIES W [place], RIGHT Attending: KYLEE Current LOS: 4 Anticipated DC Date: 08-02-2016 Planned Disposition: Home Primary Insurance: MEDICARE A & B Is the patient Alert and Oriented? Yes * How many steps to enter\exit or inside your home? TWO with rail * PCP DR KRUEGER * Pharmacy [facility] [address] * Preadmission Environment Home with Family * ADLs Independent * Equipment Cane Other Rolling Walker Shower Chair Wheelchair * Other Equipment GRAB BARS IN SHOWER * List name and contact numbers for known caregivers / representatives who currently or will assist patient after discharge: PAETL MAR, SPOUSE, * Community resources currently utilized None * Additional services required to return to the preadmission environment? No * Can the patient safely return to the preadmission environment? Yes * Has this patient been hospitalized within the prior 30 days at any hospital? No Discharge Planning Comments: CM MET WITH PATIENT TO ASSESS DC PLAN/NEEDS. PT STATED THAT SHE LIVES AT HOME WITH HER AND IS INDEPENDENT IN HER CARE/ADL'S. STATED SHE AMBULATES WITH NO ASSISTANCE, BUT HAS A CANE, WALKER AND WHEELCHAIR AT HOME IF NEEDED. HER DME PROVIDER IS [facility]. SHE STATED SHE HAS USED [facility] IN THE PAST, BUT DENIED NEED FOR HH AT D/C. SHE ALSO STATED SHE HAS HAD REHAB SERVICES AT [facility] IN THE PAST, BUT ALSO DENIED NEED FOR REHAB SERVICES AT D/C. SHE VOICED NO NEED FOR ANY ADDITIONAL DME AT D/C. SHE STATED HER HOME IS A SAFE PLACE, AND PLANS TO RETURN HOME WITH HER SPOUSE WHO WILL DRIVE HER HOME AT D/C. DC IMM SIGNED AND PLACED IN CHART. CM WILL FOLLOW AND ASSIST WITH ANY DC NEEDS THEY ARISE. Steel Roller: Rosalia Rodriguez RN, CM
--- NOTE | 2016-08-02 13:59 | NUR ---
Called Breving again and informed him patient is D/C per his visit. he will be by within the hour. Patient and informed.
--- NOTE | 2016-08-02 14:03 | NUR ---
Called office regarding antibiotics that patient should go home on, per request.
[2016-08-02] MEDS ORDERED: XARELTO10 MG PO (14:39)
[2016-08-02] MEDS ORDERED: PLAVIX75 MG PO (14:39)
--- NOTE | 2016-08-02 15:55 | NUR ---
Awaiting to see patient for DC.
[2016-08-02] MEDS ORDERED: AUGMENTIN 875-11 TAB PO (16:08)
--- NOTE | 2016-08-02 16:36 | NUR ---
in to see patient. Patient okayed to go home, law follow up with him in 3 weeks. Demonstrated to patients how to dress and care for wound.
--- NOTE | 2016-08-02 17:27 | NUR ---
ALL D.C teaching completed, patient and verbalize understanding regarding meds and wound cleaning. kaye Smith sup in room removing midline at this time.
--- NOTE | 2016-08-12 09:40 | CN ---
PATIENT NAME:CATHY MAR MEDICAL RECORD: [id number] : 42 LOCATION:[facility] ADMIT DATE: 07/29/16 ACCOUNT: [id number] CONSULTING PHYSICIAN: DOMINGO RYDER MD REFERRING PHYSICIAN: JOEL ENGLISH MD DATE OF CONSULTATION: 08/02/2016 Consultation Note Addendum CHIEF COMPLAINT: Infected toe. I have been asked to see the patient by Dr. English. The patient has undergone an endovascular revascularization of the right lower extremity. There is eschar on the medial aspect of the toe, which is a hard eschar, also on the plantar surface of the toe at the metatarsophalangeal joint. There is tunneling here as well and this may tunneled to the bone or it may not. The patient's right foot is warm. I recommended that we manage the right toe expectantly. I think that both eschars probably slough. I am hopeful that we can avoid an amputation of the toe in her case. Palpation aggravates. Nothing alleviates. Symptoms are improved. This is a consultation note addendum. For the portion of the consult note, please see the chart. This would include past medical and surgical history, allergies, current medications as well as social history. REVIEW OF SYSTEMS: No nausea, no vomiting, no fever, no chills, no chest pain, no shortness of breath. The review of systems is negative other than as is described above. PHYSICAL EXAMINATION: GENERAL: The patient does not appear acutely ill. She does not appear chronically ill. VITAL SIGNS: Reviewed. HEAD: External ears appear normal. EYES: Extraocular movements are intact. NECK: Trachea is midline. CHEST: No intercostal retractions. PULMONARY: Nonlabored, no stridor. ABDOMEN: No peritonitis. EXTREMITIES: As described above. INTEGUMENT: Eschars as described above. I noted no purulence. There is no foul odor associated with the eschars involving the right great toe. BACK: Mild thoracic kyphosis is present. LYMPHATICS: No lymphangitic streaking of the exposed extremities. IMPRESSION: Gangrene of the right great toe in a patient who has undergone arterial endovascular revascularization of the right lower extremity. PLAN: Will be to manage this expectantly. Debridement as necessary. I will see the patient in followup in my office. TRANSINT:[id number] Voice Confirmation ID: [id number] DOCUMENT ID: [id number] CONSULT REPORT [id number] CATHY MAR ROBERT MD at 0940 CC: [id number] DICTATION DATE: 08/03/1643 REFLEXOLOGIST: 08/03/16 0900 DIS IN 08/02/16 [facility] [address] [id number]
--- NOTE | 2016-08-20 11:31 | DS ---
PATIENT:CATHY MAR :42 MEDICAL RECORD: [id number] DISCHARGE SUMMARY ADMISSION DATE: 07/29/16 DISCHARGE DATE: 08/02/16 DISCHARGE DIAGNOSES: 1. Atherosclerosis of [place] arteries of the extremities with gangrene, right leg. 2. Non-pressure chronic ulceration, right foot. 3. Nicotine dependence. 4. Type 2 diabetes mellitus. 5. Hyperlipidemia. 6. Essential hypertension. 7. Atrial fibrillation. 8. Severe stenosis of the carotid arteries. 9. Atherosclerotic cardiovascular disease. DISCHARGE MEDICATIONS: Please see medical reconciliation form. DISPOSITION: The patient discharged home, has appointment to see Dr. Shaikh in 2-3 weeks, appointment to see Dr. Brower to be arranged. HOSPITAL COURSE: Ms. Cathy Mar was admitted to the hospital from the clinic with gangrene of her right great toe and ulceration. She was admitted to the hospital. She has a history of severe carotid stenosis, was not a candidate for anesthesia without being able to correct her carotid disease, which she declined recently. She was seen by Dr. Brower of interventional radiology and underwent anticoagulation and intervention with a good result. This improved flow to her foot tremendously. She was seen by Dr. Morfin for wound evaluation and he felt that current topical care was indicated and no indication for debridement. At the time of discharge, she is taking a diet and ambulating. She has been placed on chronic anticoagulation. She has stopped this in the past and has been instructed not to stop any anticoagulation without notifying her physicians. She has been given discharge instructions, tobacco cessation instructions and will be seen as above. TRANSINT:[id number] Voice Confirmation ID: [id number] DOCUMENT ID: [id number] JOEL SHAIKH MD at 1131 CC: [id number] DICTATION DATE: 08/13/[address] SPECIALIST: 08/13/16 1302 DIS IN 08/02/16 [place] [id number]
== END 2016-08-02 17:45 | disposition home or self-care (01) | DRG 272 ==
LOC: D.CVICU 12:46
PROVIDERS: Radiology Diagnostic Radiology; ADMIT Internal Medicine Cardiovascular Disease
PROC: 05HC33Z Insertion of Infusion Device into Left Basilic Vein, Percutaneous Approach (ICD-10-PCS; principal; 2016-07-29)
PROC: B51N1ZA Fluoroscopy of Left Upper Extremity Veins using Low Osmolar Contrast, Guidance (ICD-10-PCS; 2016-07-29)
PROC: 04CK3ZZ Extirpation of Matter from Right Femoral Artery, Percutaneous Approach (ICD-10-PCS; 2016-07-29)
PROC: 047K3Z1 Dilation of Right Femoral Artery using Drug-Coated Balloon, Percutaneous Approach (ICD-10-PCS; 2016-07-29)
PROC: B54NZZA Ultrasonography of Left Upper Extremity Veins, Guidance (ICD-10-PCS; 2016-07-29)
PROC: 047M3Z1 Dilation of Right Popliteal Artery using Drug-Coated Balloon, Percutaneous Approach (ICD-10-PCS; 2016-08-01)
PROC: 04CM3ZZ Extirpation of Matter from Right Popliteal Artery, Percutaneous Approach (ICD-10-PCS; 2016-08-01)
DX: I70.261 Atherosclerosis of native arteries of extremities with gangrene, right leg (principal); L97.519 Non-pressure chronic ulcer of other part of right foot with unspecified severity; F17.200 Nicotine dependence, unspecified, uncomplicated; E11.9 Type 2 diabetes mellitus without complications; E78.5 Hyperlipidemia, unspecified; I10 Essential (primary) hypertension; I48.91 Unspecified atrial fibrillation; I65.23 Occlusion and stenosis of bilateral carotid arteries; I25.10 Atherosclerotic heart disease of native coronary artery without angina pectoris; E66.3 Overweight; Z68.20 Body mass index [BMI] 20.0-20.9, adult

== ENCOUNTER → 2017-01-18 14:18 | Outpatient (CLI) | payer MEDICARE, OTHER ==
[2016-07-29 13:58] VITALS: BMI 26.7
[~2017-01-18 14:18] MED LIST changes: +AMOXICILLIN875 MG PO; +AUGMENTIN 875-11 TAB PO
== END | disposition home or self-care (01) ==
LOC: D.CT 14:18
DX: I65.29 Occlusion and stenosis of unspecified carotid artery (principal)

== ENCOUNTER 2018-05-11 10:28 | Outpatient (CLI) | payer MEDICARE, OTHER ==
[~2018-05-11] VITALS: Ht 160 cm; Wt 65.9 kg
--- NOTE | ~2018-05-11 | HEMODYNAMI ---
PATIENT:CATHY MAR MEDICAL RECORD: [id number] : 42 LOCATION:D.CAT ADMISSION DATE: 05/11/18 Generatedon:05/11/201814:29 Patient name: CATHY MAR Patient #: [id number] SSN: : 1940 Date of study: 05/11/2018 Page: Of Hemodynamic Procedure Report Patient Data Patient Demographics Procedure consent was obtained First Name: CATHY Gender: Female Last Name: ISABELA : 1940 Patient #: [id number] Age: 77 year(s) Race: Unknown Additional ID: [id number] Contact details [address]: [address] [place] [address] State: [place] City: [place] Zip code: [address] Admission Admission Data Admission Date: 05/11/2018 Admission Time: 10:28 Procedure Procedure Types Cath Procedure Diagnostic Procedure LHC LHC w/Coronaries w/Grafts Cardioversion External PCI Procedure Coronary Stent Coronary Stent Initial x2 Procedure Description Procedure Date Procedure Date: 05/11/2018 Procedure Start Time: 14:01 Procedure End Time: 14:29 Procedure Staff Name Function Gregorio Marie MD Performing Physician Rico Nettles RT Monitor Edgar Monge RN Nurse Bozena Messina RT Scrub Antonio English CRNA Additional personnel Procedure Data Cath Procedure Fluoroscopy Diagnostic fluoroscopy Total fluoroscopy Time: 5.8 time: 5.8 min min Diagnostic fluoroscopy Total fluoroscopy dose: 264 dose: 264 mGy mGy Contrast Material Contrast Material Type Amount (ml) Isovue 300 123 Entry Location Entry Primary Successful Side Size Upsize Upsize Entry Closure Succes sful Closure Location (Fr) 1 (Fr) 2 (Fr) Remarks Device Remarks Femoral Right 5 Fr 6 Fr Exoseal artery Short Estimated blood loss: 10 ml Diagnostic catheters Device Type Used For End Catheter Placement MULTIPACK Pigtail 5 Fr Procedure catheter MULTIPACK JL 4.0 5Fr Procedure catheter MULTIPACK 3DRC 5Fr Procedure catheter DIAGNOSTIC AR2 MOD 5 Fr Procedure catheter ([id number]) Procedure Complications No complications Procedure Medications Medication Administration Route Dosage Oxygen etCO2 Nasal cannula 2 l/min Heparin Flush Bag added to field 2 bags (1000units/500ml NS) 0.9% NaCl I.V. 100 ml/hr Lidocaine 2% added to field 20 Refer to Anesthesia Notes for Sedation Medications Heparin Bolus I.V. 4000 units Hemodynamics Rest Pre Cath Intra NCS Post Cath Vital Signs Time Heart Resp SPO2 etCO2 NIBP (mmHg) Rhythm Pain Sedation Rate (ipm) (%) (mmHg) Status Level (bpm) 13:47:06 107 18 92 25.5 136/103(117) NSR 0 (11) 10(A) , No pain 13:51:12 102 17 98 22.5 108/98(104) NSR 0 (11) 10(A) , No pain 13:56:17 90 16 99 27.8 132/110(126) NSR 0 (11) 10(A) , No pain 14:00:31 78 16 97 21 141/92(123) NSR 0 (11) 10(A) , No pain 14:05:49 79 17 88 15 106/80(101) NSR 0 (11) 8(A) , No pain 14:09:59 98 16 92 9.7 114/71(84) NSR 0 (11) 8(A) , No pain 14:14:19 86 16 94 28.5 105/54(77) NSR 0 (11) 8(A) , No pain 14:18:35 76 16 94 9.7 83/56(71) NSR 0 (11) 8(A) , No pain 14:23:53 69 17 96 26.3 102/56(79) NSR 0 (11) 8(A) , No pain 14:28:02 69 16 96 24.8 104/55(75) NSR 0 (11) 8(A) , No pain Medications Time Medication Route Dose Verified Delivered Reason Notes Effectiveness by by 13:51:46 Oxygen etCO2 2 Gregorio Hernández Per physician Nasal l/min Frank Monge RN cannula 13:51:55 Heparin Flush added 2 Gregorio Hernández used for Bag to bags Frank Monge manager mental health (1000units/500ml field NS) 13:52:16 0.9% NaCl I.V. 100 Gregorio Hernández Per physician ml/hr Frank Monge RN 13:52:25 Lidocaine 2% added 20ml Gregorio Hernández used for to vial Frank Monge RN procedure field 13:53:44 Refer to Gregorio Hernández used for Anesthesia Notes Frank Monge RN procedure for Sedation Medications 14:13:38 Heparin Bolus I.V. 4000 Gregorio Hernández for units Frank Monge RN anticoagulation Procedure Log Time Note 13:25:04 Bozena Counts RT(R) sent for patient. Start room use. 13:40:10 Time tracking: Regular hours (M-F 7:00 - 5:00) 13:40:13 Plan of Care:Hemodynamics will remain stable., Cardiac rhythm will remain stable., Comfort level will be maintained., Respiratory function will remain adequate., Patient/ family verbilizes understanding of procedure., Procedure tolerated without complication., Recovers from procedure without complications.. 13:40:43 Antonio English CRNA present and monitoring patient for TIVA. 13:42:19 Patient received from Pre/Post Procedure Room to CCL 3 Alert and oriented. Tansferred to table in Supine position. 13:42:22 Warm blankets applied, and stevie hugger turned on for patient comfort. 13:43:06 Correct patient and procedure confirmed by team. 13:43:08 Signed procedure consent form obtained from patient. 13:43:09 ECG and BP/O2 sat monitors applied to patient. 13:44:48 Vital chart was started 13:48:44 Rhythm: atrial fibrillation 13:48:46 Full Disclosure recording started 13:48:57 H&P Date Dictated: 05/02/2018 Within 30 days and on chart., H&P Addendum completed by physician on day of procedure. (MUST COMPLETE FOR ALL OUTPATIENTS). 13:48:57 Pre-procedure instructions explained to patient. 13:48:58 Pre-op teaching completed and patient verbalized understanding. 13:49:00 Family in waiting room. 13:49:01 Patient NPO since Midnight. 13:49:03 Is the patient allergic to Iodine/contrast media? No. 13:49:04 Is patient on blood thinner?Yes 13:49:06 ACC The patient was administered the following blood thiners within the last 24 hours: ACCPlavix 13:50:22 Last dose of Xeralto was 12.25.18 13:50:25 Patient diabetic? Yes. 13:50:45 If diabetic: On Metformin? Yes 13:51:46 Oxygen 2 l/min etCO2 Nasal cannula was administered by Edgar Monge RN; Per physician; 13:51:55 Heparin Flush Bag (1000units/500ml NS) 2 bags added to field was administered by Edgar Monge RN; used for procedure; 13:52:16 0.9% NaCl 100 ml/hr I.V. was administered by Edgar Monge RN; Per physician; 13:52:25 Lidocaine 2% 20ml vial added to field was administered by Edgar Monge RN; used for procedure; 13:53:44 Refer to Anesthesia Notes for Sedation Medications was administered by Edgar Monge RN; used for procedure; 13:53:57 If on Metformin: Last Dose? 05/10/2018 13:54:03 Previous problem with sedation/anesthesia? No ? 13:54:05 Snore? Yes 13:54:06 Sleep apnea? No 13:54:07 Deviated septum? No 13:54:08 Opens mouth fully? Yes 13:54:09 Sticks out tongue? Yes 13:54:11 Airway obstruction? No ? 13:54:13 Dentures? No ? 13:54:19 Pre procedure: right dorsailis pedis pulse 1+ Palpable, but thready & weak; easily obliterated 13:54:22 Patient pain scale 0/10 ?. 13:54:34 IV patent on arrival in left forearm with 0.9% NaCl at KVO. 13:54:37 Lab results completed and on chart. 13:54:41 Right groin area was prepped with chlora-prep and draped in sterile fashion 13:54:43 Alarms reviewed by R. N. 13:54:43 Sharps counted by scrub and verified by R.N. 13:58:28 Quick combo pads placed on patients chest and back. 13:58:33 --------ALL STOP TIME OUT------ 13:58:33 Final Timeout: patient, procedure, and site verified with staff and physician. All members of the team are in agreement. 13:58:36 Right groin site verified by team. 13:58:42 Sedation plan: TIVA Medication:Propofol 13:58:59 Physical assessment completed. ASA score P 3 - A patient with severe systemic disease as per Gregorio Marie MD. 14:01:54 Procedure started. 14:01:58 Local anesthetic to right femoral artery with Lidocaine 2% by Gregorio Marie MD.INITIAL ACCESS ONLY 14:04:34 A 5 Fr sheath was inserted into the Right Femoral artery 14:05:01 Use device set Femoral Dx 14:05:07 ACIST Syringe (73320) opened to sterile field. 14:05:08 Bag Decanter (2002S) opened to sterile field. 14:05:08 Medline Cath Pack ([id number]) opened to sterile field. 14:05:10 ACIST Hand Control (41073) opened to sterile field. 14:05:16 ACIST Manifold (30168) opened to sterile field. 14:05:17 Tegaderm 4 x 4 (1626W) opened to sterile field. 14:05:18 SHEATH 5FR [place] (BCL289) opened to sterile field. 14:05:20 DIAGNOSTIC WIRE .035 260cm J wire (427559) opened to sterile field. 14:05:21 Quick Combo opened to sterile field. 14:05:22 DIAGNOSTIC Multipack 5Fr catheter set (YE8228) opened to sterile field. 14:05:28 A MULTIPACK Pigtail 5 Fr catheter was advanced over the wire and used for Procedure. 14:06:06 LV angiography performed. 14:06:07 LV gram done using HUMPHREYS 14:06:12 EF : 25 % 14:06:16 Injector settings: Ml/sec: 10, Volume: 20, 14:06:19 Catheter removed. 14:06:23 A MULTIPACK JL 4.0 5Fr catheter was advanced over the wire and used for Procedure. 14:07:03 LCA angiography performed. 14:07:39 Catheter removed. 14:07:44 A MULTIPACK 3DRC 5Fr catheter was advanced over the wire and used for Procedure. 14:08:21 CORNELIUS to LAD angiography performed. 14:09:11 RCA angiography performed. 14:09:17 Catheter removed. 14:09:25 Use device set TAUTH PCI 14:09:28 SHEATH 6FR [place] (PRK662) opened to sterile field. 14:09:38 CHOICE PT Extra Support 182cm wire ([id number]) opened to sterile field. 14:09:53 INFLATOR Merit Brittany (MW9973) opened to sterile field. 14:10:01 A DIAGNOSTIC AR2 MOD 5 Fr catheter ([id number]) was advanced over the wire and used for Procedure. 14:10:19 SVG to RCA occluded. 14:12:07 SVG to Circ occluded. 14:12:09 Catheter removed. 14:12:16 Sheath upsized to a 6 Fr Short. 14:12:23 GUIDE 6FR XBLAD 3.5 catheter ([id number]) opened to sterile field. 14:12:49 GUIDE 6FR HS I catheter (LA6HSI) opened to sterile field. 14:12:59 6 Fr XBLAD 3.5 guide catheter was inserted over the wire 14:13:13 CPTXS wire advanced. 14:13:38 Heparin Bolus 4000 units I.V. was administered by Edgar Monge RN; for anticoagulation; 14:14:14 Wire advanced across lesion. 14:14:26 Place stent Inflation Number: 1 A INTEGRITY RX 2.5 x 14 stent ([id number]) was prepped and advanced across the Mid CX. The stent was deployed at 13 ZELDA for 0:10 (min:sec). 14:15:14 Stent catheter was removed intact over wire. 14:15:15 Wire removed. 14:15:16 Guide catheter removed. 14:15:36 6 Fr HS 1 guide catheter was inserted over the wire 14:15:41 New CPTXS wire advanced. 14:15:52 Wire advanced across lesion. 14:16:59 Place stent Inflation Number: 1 A INTEGRITY RX 3.5 x 22 stent ([id number]) was prepped and advanced across the Mid RCA. The stent was deployed at 19 ZELDA for 0:10 (min:sec). 14:17:26 CHOICE PT Extra Support 182cm wire ([id number]) opened to sterile field. 14:18:00 Stent catheter was removed intact over wire. 14:18:14 Inflate balloon Inflation number: 2 A INTEGRITY RX 3.5 x 15 stent ([id number]) was prepped and advanced across the Mid RCA, then inflated to 15 ZELDA for 0:10 (min:sec). 14:18:16 Stent catheter was removed intact over wire. 14:18:18 Wire removed. 14:18:18 Guide catheter removed. 14:18:50 Defibrillator synced and charged to 200 Joules. 14:18:58 Shock delivered. 14:21:00 Patient cardioverted to sinus rhythm . 14:21:11 Sheath removed intact; hemostasis achieved with Exoseal to the Right Femoral artery. 14:21:14 Procedure ended.(Physican Out) 14:22:52 Fluoroscopy time 05.80 minutes. 14::56 Fluoroscopy dose: 264 mGy 14::56 Flurop Dose total: 264 14:23:01 Contrast amount:Isovue 300 123ml. 14:23:03 Sharps counted by scrub and verified by R.N. 14:23:08 Insertion/operative site no bleeding no hematoma. 14:23:11 Post-op/insertion site Right Femoral artery dressed using a 4 x 4 and Tegaderm. 14:23:12 Post Procedure Pulses reassessed and unchanged 14:23:14 Post-procedure physical assessment completed. ASA score P 3 - A patient with severe systemic disease as per Gregorio Marie MD. 14:23:18 Post procedure rhythm: sinus rhythm 14:23:21 Estimated blood loss: 10 ml 14:24:24 Post procedure instruction explained to patient.Patient verbalizes understanding. 14:24:24 Patient needs reinforcement of post procedure teaching. 14:24:57 Procedure type changed to Cath procedure, Diagnostic procedure, LHC, LHC w/Coronaries w/Grafts, Cardioversion External, PCI procedure, Coronary Stent, Coronary Stent Initial x2 14:27:44 Procedure and supply charges have been captured, reviewed, submitted and are correct. 14:27:46 Procedure Complication : No complications 14:28:08 EXOSEAL 6Fr (EX600) opened to sterile field. 14:28:35 Vital chart was stopped 14:28:36 See physician's report for complete and final results. 14:29:04 Report given to Pre/Post Procedure Room. 14:29:13 Report given to Pre/Post Procedure Room. 14:29:15 Patient transfered to Pre/Post Procedure Room with Stretcher. 14:29:17 Procedure ended. 14:29:17 Full Disclosure recording stopped 14::26 End room use (Document Last) Intervention Summary Intervention Notes Time ActionType Lesion and Equipment Action# Pressure Duration Attributes Used 14:: Place stent Mid CX INTEGRITY RX 1 13 00:10 2.5 x 14 stent ([id number]) 14:16:59 Place stent Mid RCA INTEGRITY RX 1 19 00:10 3.5 x 22 stent ([id number]) 14:18:14 Inflate Mid RCA INTEGRITY RX 2 15 00:10 balloon 3.5 x 15 stent ([id number]) Device Usage Item Name Manufacture Quantity Catalog Number Hospital Part Current Mini mal Lot# / Charge Number Stock Stock Serial# Code ACIST Acist 1 03059 199323 979044 060946 20 Syringe Medical (38607) Systems Inc Bag Decanter Microtek 1 2001S 297362 96532 873729 5 (2001S) Medical Inc. Medline Cath Medline 1 [id number] 582123 55513 374375 5 Pack ([id number]) ACIST Hand Acist 1 39455 917684 795852 514874 5 Control Medical (88350) Systems Inc ACIST Acist 1 32294 806917 972308 236384 5 Manifold Medical (04393) Systems Inc Tegaderm 4 x 3M 1 1626W 341676 861612 026582 5 4 (1626W) SHEATH 5FR Terumo 1 HSL940 944835 265608 340930 5 [place] (JNA504) DIAGNOSTIC St Ben 1 660390 021466 772581 767437 30 WIRE .035 260cm J wire (684173) Quick Pet360 1 68303-112084 872514 266664 904798 5 DIAGNOSTIC Cardinal 1 VU8988 829533 41588 400933 30 Multipack Health 5Fr catheter set (RS8983) MULTIPACK Cardinal 1 522062 5 Pigtail 5 Fr Health catheter MULTIPACK JL Cardinal 1 150112 5 4.0 5Fr Health catheter MULTIPACK Cardinal 1 789868 5 3DRC 5Fr Health catheter SHEATH 6FR Terumo 1 JEM623 957153 776888 512330 40 [place] (HSD358) CHOICE PT [place] 2 [id number] 992679 444915 990272 5 Extra Scientific Support 182cm wire ([id number]) INFLATOR Merit 1 QP7889 832407 411008 498215 15 [facility] Medical BasixCompak (BP8247) DIAGNOSTIC Cardinal 1 338758X 684441 298197 158989 20 AR2 MOD 5 Fr Health catheter (768995F) GUIDE 6FR Cardinal 1 29480802 572646 558026 117080 10 XBLAD 3.5 Health catheter (60338176) GUIDE 6FR HS Medtronic 1 LA6HSI 187183 20667 527906 1 I catheter (LA6HSI) INTEGRITY RX Medtronic 1 [id number] 192863 587931 451517 5 [id number] 2.5 x 14 stent ([id number]) INTEGRITY RX Medtronic 1 [id number] 538586 955782 716603 5 [id number] 3.5 x 22 stent ([id number]) INTEGRITY RX Medtronic 1 [id number] 345720 555640 261663 5 [id number] 3.5 x 15 stent ([id number]) EXOSEAL 6Fr Cardinal 1 EX600 836235 031866 815476 10 (EX600) Health Signature Audit [place] Stage Time Signature Unsigned Intra-Procedure 05/11/2018 Rico Nettles 2:29:54 PM RT(R) Signatures Monitor : Rico Nettles RT Signature : Date : Time : [id number] [place] [address]
[2018-05-11 11:18] VITALS: BP 138/72; BMI 25.7
[2018-05-11 11:36] LABS: BASOPHILS 0.6 % (0-2); EOSINOPHILS 1.8 % (0-7); HEMATOCRIT 46.5 % (36.0-48.0); HEMOGLOBIN 14.3 g/dL (12-16); IMMATURE GRANULOCYTES 0.1 % (0-5); MCH 28.7 pg (26.0-34.0); MCHC 30.8 g/dL (31.0-37.0); MCV 93.2 fL (80.0-100.0); MEAN PLATELET VOLUME 10.9 fL (7.4-10.4); MONOCYTES 11.9 % (2-11); NEUTROPHILS 65.6 % (40-80); RBC 4.99 10x6/uL (4.00-5.40); RDW 17.1 % (11.5-14.5); WBC 6.7 10x3/uL (4.8-10.8)
[2018-05-11 11:48] LABS: PLATELET COUNT 220 10x3/uL (130-400)
[2018-05-11 11:54] LABS: ANION GAP 14.9 mmol/L (8-16); CALCIUM 8.9 mg/dL (8.5-10.1); CARBON DIOXIDE 28.3 mmol/L (21.0-32.0); CREATININE - SERUM 1.3 mg/dL (0.6-1.3); POTASSIUM - SERUM 4.2 mmol/L (3.5-5.1)
[2018-05-11 12:14] LABS: INR 1.38 (0.85-1.17); PROTIME 16.4 SECONDS (11.6-15.0)
[2018-05-11 20:11] VITALS: BP 114/74; Ht 160 cm; Wt 65.9 kg
[2018-05-11 20:50] VITALS: BP 122/46
[2018-05-12 01:30] VITALS: BP 139/91
[2018-05-12 06:14] VITALS: BP 115/64
[2018-05-12 08:21] VITALS: BP 128/57
--- NOTE | 2018-05-14 14:36 | OP ---
PATIENT NAME: CATHY MAR MEDICAL RECORD: [id number] :42 LOCATION:D.CAT ADMISSION DATE: SURGEON: MARCELA SEPULVEDA MD DATE OF OPERATION: 05/11/2018 PROCEDURES: 1. PTCA stent left circumflex. 2. PTCA stent RCA. 3. Left heart catheterization. 4. Selective coronary angiography. 5. Vein graft angiography. 6. CORNELIUS angiography. 7. Left ventriculogram. 8. DC cardioversion. INDICATION: Angina, coronary artery disease, and atrial fibrillation. DESCRIPTION OF PROCEDURE: After informed consent was obtained and after a detailed description of the risks, benefits as well as alternative therapies, the patient elected to proceed with angiogram and angioplasty. The right femoral area was prepped and draped in normal sterile fashion. Right femoral artery was cannulated via modified Seldinger technique with placement of 6-[place] sheath. All catheters exchanged through this sheath. FINDINGS: Left ventriculogram was performed in standard 30-degree HUMPHREYS view, reveals global hypokinesis throughout all segments. Overall ejection fraction 25% to 30%. SELECTIVE CORONARY ANGIOGRAPHY: 1. Left main is with no significant angiographic disease. 2. Left anterior descending is totally occluded. 3. CORNELIUS to the LAD is widely patent. Distal LAD is widely patent. 4. Left circumflex has 70% to 80% stenosis in mid vessel. 5. Vein graft to circumflex is closed. 6. Right coronary has 2 areas of 70 to 80% stenosis in the mid vessel. This vessel has not closed. 7. Vein graft to the right coronary artery is closed. PTCA STENT OF THE LEFT CIRCUMFLEX AND RCA. Circumflex was addressed with a 2.5 x 14 mm Integrity of the RCA with a 3.5 x 22 and 3.5 x 15 both Integrity stents. Result was 0% residual throughout. DC CARDIOVERSION: IV conscious sedation was performed per anesthesia. Continuous heart rate, O2 saturation, blood pressure monitoring all undertaken, all of which remains stable. She received 1 shock at 275 joules restoring sinus rhythm. OVERALL IMPRESSION: 1. Successful percutaneous transluminal angioplasty stent of the left circumflex and right coronary artery, both going from 70 to 80% initial stenosis to 0% residual. 2. Successful direct current cardioversion from atrial fibrillation to sinus rhythm. TRANSINT:[id number] Voice Confirmation ID: [id number] DOCUMENT ID: [id number] OPERATIVE REPORT [id number] CATHY MAR, MARCELA MALDONADO at 1436 CC: [id number] DICTATION DATE: 05/11/18 1426 CHAIN DYER: 05/11/182227 DEP CLI 05/12/18 [id number] [place] [address]
--- NOTE | 2018-05-14 14:36 | DS ---
PATIENT:CATHY SRINIVASAN :42 MEDICAL RECORD: [id number] DISCHARGE SUMMARY ADMISSION DATE: 05/11/18 DISCHARGE DATE: 05/12/18 DISCHARGE DIAGNOSES: 1. Angina. 2. Coronary artery disease. 3. Percutaneous transluminal coronary angioplasty stent of left circumflex and right coronary artery this admission. HOSPITAL COURSE: Mrs. Srinivasan presents with angina, found to have RCA and left circumflex disease with close grafts of these territories underwent successful PTCA stent of the [place] vessel and had difficulty waking up after anesthesia, was kept overnight, had an uneventful course. No further angina. No dysrhythmia. Discharged home with the addition of aspirin and Plavix to her medical regimen. She will follow up with [facility] in 1 month. TRANSINT:[id number] Voice Confirmation ID: [id number] DOCUMENT ID: [id number] MARCELA SEPULVEDA MD at 1436 CC: [id number] DICTATION DATE: 05/12/18 1054 REFINING MACHINE OPERATOR: 05/13/18 0102 DEP CLI 05/12/18 [address] [place] [address]
== END 2018-05-12 11:31 | disposition home or self-care (01) ==
LOC: D.CATH 10:28 → D.M2 18:20 → D.CATH 18:20 → D.M2 18:43 → D.CATH 05-12 11:31
PROVIDERS: Internal Medicine Interventional Cardiology
DX: I25.119 Atherosclerotic heart disease of native coronary artery with unspecified angina pectoris (principal); I48.91 Unspecified atrial fibrillation; Z01.812 Encounter for preprocedural laboratory examination